=== PATIENT | female | born 1970 | race Caucasian/White ===

== ENCOUNTER 2017-03-08 09:05 | Emergency (ER) | payer BC ==
[~2017-03-08] VITALS: Ht 170.2 cm; Wt 115.7 kg
[2017-03-08 09:05] VITALS: BP 145/79
[2017-03-08] MEDS ORDERED: OLME1TAB34 PO (09:35)
[2017-03-08] MEDS ORDERED: ASPI-605 PO (09:35)
[2017-03-08] MEDS ORDERED: IBUPROFEN 400 MG TABLET PO ONE (10:00)
[2017-03-08] MEDS ORDERED: IBUPROFEN 600 MG TABLET PO ONE (10:53)
[2017-03-08] MEDS ORDERED: ACETAMINOPHEN ES 500 MG TABLET PO ONE (11:00)
[2017-03-08] MEDS ORDERED: ACETAMINOPHEN ES 500 MG TABLET ONE (11:01)
== END 2017-03-08 11:08 | disposition home or self-care (01) ==
LOC: ER 09:09
DX: S63.601A Unspecified sprain of right thumb, initial encounter (principal); I10 Essential (primary) hypertension; Z98.84 Bariatric surgery status; Z79.82 Long term (current) use of aspirin; W01.0XXA Fall on same level from slipping, tripping and stumbling without subsequent striking against object, initial encounter; Y93.01 Activity, walking, marching and hiking; Y92.89 Other specified places as the place of occurrence of the external cause; Y99.8 Other external cause status
CPT/HCPCS: 73130-TC; A4606; Z7610